=== PATIENT | female | born 1950 | race Two or more races ===

== ENCOUNTER 2016-03-17 11:03 | Outpatient (CLI) | payer MEDICARE | END 2016-03-17 11:04 | disposition home or self-care (01) | DX: Z12.31 Encounter for screening mammogram for malignant neoplasm of breast (principal); R92.2 Inconclusive mammogram ==

== ENCOUNTER 2016-04-12 12:30 | Outpatient (CLI) | payer MEDICARE | END 2016-04-12 12:31 | disposition home or self-care (01) | DX: N63 Unspecified lump in breast (principal) ==

== ENCOUNTER 2016-04-12 12:32 | Outpatient (CLI) | payer MEDICARE | END 2016-04-12 12:33 | disposition home or self-care (01) | DX: R00.2 Palpitations (principal); N63 Unspecified lump in breast | CPT/HCPCS: 93306; G0206 ==

== ENCOUNTER 2016-04-21 08:36 | Outpatient (CLI) | payer MEDICARE | END 2016-04-21 08:37 | disposition home or self-care (01) | DX: N63 Unspecified lump in breast (principal) ==

== ENCOUNTER 2016-05-23 07:13 | Day surgery (SDC) | payer MEDICARE ==
[2016-05-23] MEDS ORDERED: LACTATED RINGERS 1,000 ML IV ONE (07:36)
[2016-05-23] MEDS ORDERED: MIDAZOLAM 2 MG/2 ML VIAL IVP ONE (08:10)
[2016-05-23] MEDS ORDERED: fentaNYL 250 MCG/5 ML VIAL IVP ONE (08:10)
== END 2016-05-23 07:14 | disposition home or self-care (01) ==
PROC: 0DBK8ZX Excision of Ascending Colon, Via Natural or Artificial Opening Endoscopic, Diagnostic (ICD-10-PCS; principal; 2016-05-23 08:15)
DX: Z12.11 Encounter for screening for malignant neoplasm of colon (principal); D12.2 Benign neoplasm of ascending colon; K57.30 Diverticulosis of large intestine without perforation or abscess without bleeding; K64.8 Other hemorrhoids; Z79.82 Long term (current) use of aspirin; E78.00 Pure hypercholesterolemia, unspecified; F32.9 Major depressive disorder, single episode, unspecified; F41.0 Panic disorder [episodic paroxysmal anxiety]; Z87.891 Personal history of nicotine dependence; Z82.49 Family history of ischemic heart disease and other diseases of the circulatory system; Z80.1 Family history of malignant neoplasm of trachea, bronchus and lung; I49.9 Cardiac arrhythmia, unspecified
CPT/HCPCS: 45380; J3010; J7120

== ENCOUNTER 2017-06-16 16:58 | Outpatient (CLI) | payer MEDICARE | END 2017-06-16 16:59 | disposition critical access hospital (66) | LOC: EMS 16:58 | PROVIDERS: ATTEND Surgery | DX: M25.522 Pain in left elbow (principal); M25.562 Pain in left knee; V18.4XXA Pedal cycle driver injured in noncollision transport accident in traffic accident, initial encounter; Y93.55 Activity, bike riding; Y92.414 Local residential or business street as the place of occurrence of the external cause | CPT/HCPCS: A0425; A0429 ==

== ENCOUNTER 2017-06-16 17:16 | Emergency (ER) | payer MEDICARE ==
[2017-06-16 17:20] VITALS: BP 124/83
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
== END 2017-06-16 17:36 | disposition home or self-care (01) ==
LOC: EDUNIT# → ED 17:16 → SUPCPDRO 17:16 → ED 17:36
DX: S50.312A Abrasion of left elbow, initial encounter (principal); S80.212A Abrasion, left knee, initial encounter; V17.4XXA Pedal cycle driver injured in collision with fixed or stationary object in traffic accident, initial encounter; Y93.55 Activity, bike riding; Y92.410 Unspecified street and highway as the place of occurrence of the external cause; R03.0 Elevated blood-pressure reading, without diagnosis of hypertension
CPT/HCPCS: 99282; 99283

== ENCOUNTER 2018-03-29 10:11 | Outpatient (CLI) | payer MEDICARE ==
--- NOTE | 2018-03-29 11:38 | Mammography Report ---
Reason: SCREENING MAMMO Procedure Date: 03/29/2018 Accession Number: [id number] / [id number] Procedure: [facility]INFA - Screening Mammo w/Roney CPT Code: FULL RESULT: EXAM: Screening Mammo w/Roney DATE: 03/29/2018 10:36 AM CLINICAL HISTORY: Routine screening. Nulliparous patient. TECHNIQUE: Bilateral CC and MLO views were obtained. COMPARISON: 04/12/2016, 03/17/2016, 04/11/2014 and 01/18/2011 FINDINGS: The breast tissue is heterogeneously dense. No significant interval change. No suspicious masses, clustered microcalcifications, or regions of architectural distortion are identified. IMPRESSION: Benign findings RECOMMENDATION: Routine annual screening unless otherwise clinically indicated. BIRADS CATEGORY 2: Benign findings STANDARD QUALIFYING STATEMENTS: 1. This examination was not reviewed with the aid of Computer-Aided Detection (CAD). 2. A negative or benign imaging report should not preclude biopsy if clinically suspicious findings are present. 3. Dense breasts may obscure an underlying neoplasm. 4. This examination was reviewed with the aid of 3D breast imaging (tomosynthesis).
== END 2018-03-29 10:12 | disposition home or self-care (01) ==
LOC: DI 10:11
DX: Z12.31 Encounter for screening mammogram for malignant neoplasm of breast (principal)
CPT/HCPCS: 77063; 77067

== ENCOUNTER 2020-07-27 10:30 | Emergency (ER) | payer MEDICARE ==
[2020-07-27] MEDS ORDERED: SUMAtriptan 6 MG/0.5 ML VIAL SUBQ STA (10:54)
--- NOTE | 2020-07-27 10:57 | ED Physician Documentation ---
PD HPI FOCAL NEURO - Stated complaint Stated Complaint: LEFT LIMBS PX/EYE PX - Chief complaint Chief Complaint: Neuro - History obtained from History obtained from: Patient - Additional information Additional information: 69-year-old woman with chronic migraines, in fact she gets daily ophthalmic migraines where she gets typical central dot which then spreads out through both eyes with shapes and colors and then actually subsequently oblique goes blind for a few minutes. Followed by a very mild head pressure and fatigue. She got her usual migraine aura today with the same ophthalmic visual changes but then she had 2 ilak-mh-aonc and the second 1 moved to the right side of her vision. Subsequently developed numbness and tingling in the left arm and leg without weakness. She still has the numbness and tingling. She is not on any migraine medications. 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: Oophrectomy - Present Medications Home Medications: Ambulatory Orders Medication Instructions Recorded Confirmed Amitriptyline [Elavil] 25 mg PO HS #30 tablet 07/27/20 - Allergies Allergies/Adverse Reactions: Allergies Allergy/AdvReac Type Severity Reaction Status Date / Time No Known Drug Allergies Allergy Verified 07/27/20 10:35 - Social History Does the pt smoke?: No Smoking Status: Former smoker Does the pt drink ETOH?: Yes ETOH Use: Liquor Does the pt have substance abuse?: No - Immunizations Immunizations are current?: Yes - POLST Patient has POLST: No PD ED PE NORMAL - Vitals Vital signs reviewed: Yes - General General: Alert and oriented X 3, No acute distress - HEENT HEENT: PERRL, EOMI - Neck Neck: Supple, no meningeal sign, No bony TTP - Neuro Neuro: Alert and oriented X 3, 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, No motor deficit, No sensory deficit, Normal speech Eye Opening: Spontaneous Motor: Obeys Commands Verbal: Oriented GCS Score: 15 NIHSS - Time Time: 10:52 - Level of Consciousness Level of consciousness: (0) Alert, Keenly responsive LOC Questions: (0) Answers both Q's correct LOC Commands: (0) Performs both correctly - Gaze Best Gaze: (0) Normal - Visual Visual: (0) No loss - Facial Palsy Facial Palsy: (0) Normal, symmetrical movement - Motor Arms (both separate) Motor Arm (right): (0) No drift Motor Arm (left): (0) No drift - Motor Legs (both separate) Motor Leg (right): (0) No drift Motor Leg (left): (0) No drift - Limb Ataxia Limb Ataxia: (0) Absent - Sensory Sensory: (0) Normal - Best Language Best Language: (0) No aphasia - Dysarthria Dysarthria: (0) Normal - Extinction and Inattention (formally neg Extinction and inattention: (0) No abnormality - Total Score/Results Total Score/Result: 0 Results - Vitals Vitals: Vital Signs - 24 hr 07/27/20 07/27/20 07/27/20 10:35 11:03 11:38 Temperature 36.7 C 36.9 C Heart Rate 61 58 L 55 L Respiratory 16 16 16 Rate Blood Pressure 149/78 H 121/82 H 140/75 H O2 Saturation 99 98 96 Oxygen O2 Source Room air PD MEDICAL DECISION MAKING - ED course ED course: This 69-year-old woman had left-sided numbness and tingling following a migraine aura which was typical for her other than the fact that it moved to the right side of her vision which of course fits with migraine symptoms as opposed to stroke. Her NIH stroke scale is 0. We will trial some Imitrex and if curative discuss migraine prophylactic medications, if negative will continue with other work-up for potential stroke. After the administration of subcutaneous Imitrex she had complete relief of her tingling confirmed the diagnosis of migrainous etiology. Departure - Departure Disposition: 01 Home, Self Care Clinical Impression: Migraine Qualifiers: Migraine type: with aura Status migrainosus presence: with status migrainosus Intractability: not intractable Qualified Code(s): G43.101 - Migraine with aura, not intractable, with status migrainosus Condition: Good Record reviewed to determine appropriate education?: Yes Instructions: ED Headache Migraine Prescriptions: Amitriptyline [Elavil] 25 mg PO HS #30 tablet Comments: Start the amitriptyline at night. Report to your physician whether is working or not. Return for new or worsening symptoms.
--- OUTSIDE RECORDS SUMMARY | 2020-07-27 11:16 | EXTERNAL MEDICAL SUMMARY RPT | Continuity of Care Document ---
:1950 Demographics Phone Unavailable Preferred Language Unknown Marital Status Unknown Judaism Affiliation Unknown Race Unknown Ethnic Group Unknown Author Organization [facility] Address [address] [place] [address] Phone Allergies Encounters Medications Problems Results
[2020-07-27 12:29] VITALS: BP 132/74
== END 2020-07-27 12:29 | disposition home or self-care (01) ==
LOC: ED 10:30
DX: G43.101 Migraine with aura, not intractable, with status migrainosus (principal); R20.2 Paresthesia of skin; Z87.891 Personal history of nicotine dependence
CPT/HCPCS: 96372; 99283

== ENCOUNTER 2020-08-31 08:30 | Outpatient (CLI) | payer MEDICARE ==
[2020-08-31 08:54] LABS: CREATININE 0.6 mg/dL (0.4-1.0)
== END 2020-08-31 23:59 | disposition home or self-care (01) ==
LOC: LAB 08:30
PROVIDERS: ATTEND Family Medicine
DX: R47.01 Aphasia (principal)
CPT/HCPCS: 36415; 82565

== ENCOUNTER 2020-09-08 08:39 | Outpatient (CLI) | payer MEDICARE ==
[2020-08-31 08:54] LABS: CREATININE 0.6 mg/dL (0.4-1.0)
[~2020-09-08 08:39] MED LIST: GADOBUTROL 10 MMOL/10 ML VIAL ONE
[2020-09-08] MEDS ORDERED: GADOBUTROL 10 MMOL/10 ML VIAL ONE (09:31)
--- NOTE | 2020-09-08 13:57 | MRI Report ---
PROCEDURE: Brain W/WO INDICATIONS: APHASIA, MIGRAINE/MIXED HEADACHE CONTRAST: IV CONTRAST: Gadavist ml: 7.5 TECHNIQUE: Noncontrast axial T1 spin echo, axial T2 fast spin echo, sagittal and axial FLAIR, coronal T2 fast sp in echo, axial gradient echo, axial diffusion and ADC through the brain. After the administration of contrast, axial and coronal T1 spin echo with fat saturation through the brain. COMPARISON: None. FINDINGS: Image quality: Excellent. CSF spaces: Basal cisterns are patent. No extra-axial fluid collections. Ventricles are normal in size and shape. Brain: No midline shift. No intracranial bleeds or masses. No abnormal intracranial enhancement. There is mild cerebral volume loss for age. Mild chronic microvascular ischemic changes. The brainste m appears normal. Diffusion-weighted images demonstrate no acute ischemic insults. No chronic ische sunny insults. Normal intravascular flow voids are present. Skull and face: Calvarial marrow is normal in signal. Orbits appear normal. Sinuses: Sinuses and mastoids are predominantly clear. IMPRESSION: No acute intracranial finding, intracranial mass, or abnormal intracranial enhancement. Mild chronic microvascular ischemic changes and age-commensurate mild global volume loss. Reviewed by: Cedric Siu MD on 09/08/2020 1:56 PM PDT Approved by: Cedric Siu MD on 09/08/2020 1:56 PM PDT Station ID: [id number]
--- NOTE | 2020-09-08 14:11 | MRI Report ---
PROCEDURE: Angio Brain W/O (MRA) INDICATIONS: APHASIA, MIGRAINE/MIXED HEADACHE TECHNIQUE: Noncontrast axial 3-D [id number]-sk-[id number] MR angiogram, with 3-dimensional maximum intensity projection (M IP) reformats of the internal carotid arteries and posterior circulation then performed. COMPARISON: None. FINDINGS: Image quality: Excellent. Anterior circulation: Normal flow-related signal is seen in the internal carotid arteries, with some irregularity along the carotid siphon suggesting atherosclerotic changes. There is also flow-related signal demonstrated within the anterior cerebral arteries, middle cerebral arteries, and the visualiz ed proximal branches. No branch occlusion or hemodynamic significant stenosis. There is some minimal luminal irregularity of the signal in the M1 segment suggesting atherosclerotic disease. No anterior circulation aneurysm. Posterior circulation: Visualized portions of the vertebral arteries demonstrate normal caliber, and join to form a normal appearing basilar artery. The flow within the posterior cerebral arteries is normal and symmetric. No stenoses, occlusions, or aneurysms. IMPRESSION: Suspected mild intracranial atherosclerosis of the internal carotid arteries and proximal M1 segments . Otherwise normal MR angiogram with no evidence of branch occlusion, hemodynamically significant narro wing, or intracranial aneurysm. Reviewed by: Cedric Siu MD on 09/08/2020 2:09 PM PDT Approved by: Cedric Siu MD on 09/08/2020 2:09 PM PDT Station ID: [id number]
[2020-09-08] MEDS ORDERED: GADOBUTROL 10 MMOL/10 ML VIAL IVP ONE (16:00)
== END 2020-09-08 08:40 | disposition home or self-care (01) ==
LOC: DI 08:39
PROVIDERS: ATTEND Family Medicine
DX: R47.01 Aphasia (principal); G43.909 Migraine, unspecified, not intractable, without status migrainosus; G44.89 Other headache syndrome; Z85.820 Personal history of malignant melanoma of skin
CPT/HCPCS: 36415; 70544; 70553; 82565; A9585

== ENCOUNTER 2020-09-22 14:19 | Outpatient (CLI) | payer MEDICARE ==
[2020-09-22 18:15] LABS: HCT - HEMATOCRIT 44.2 % (37.0-47.0); HGB - HEMOGLOBIN 14.5 g/dL (12.0-16.0); MEAN CORPUSCULAR HEMOGLOBIN 30.1 pg (27.0-31.0); MEAN CORPUSCULAR HGB CONC 32.8 g/dL (32.0-36.0); MEAN CORPUSCULAR VOLUME 91.7 fL (81.0-99.0); MEAN PLATELET VOLUME 10.8 fL (7.9-10.8); RED BLOOD COUNT 4.82 10^6/uL (4.20-5.40); RED CELL DISTRIBUTION WIDTH 12.9 % (12.0-15.0); WHITE BLOOD COUNT 5.6 x10^3/uL (4.8-10.8)
[2020-09-22 18:35] LABS: ALBUMIN 4.4 g/dL (3.2-5.5); ALBUMIN/GLOBULIN RATIO 1.7 (1.0-2.2); ALKALINE PHOSPHATASE 63 IU/L (42-121); ALT ALANINE AMINOTRANSFERASE 22 IU/L (10-60); AST ASPARTATE AMINOTRANSFERASE 20 IU/L (10-42); BILIRUBIN,TOTAL 0.9 mg/dL (0.2-1.0); BUN - BLOOD UREA NITROGEN 14 mg/dL (6-20); CALCIUM 9.3 mg/dL (8.5-10.3); CARBON DIOXIDE - CO2 27 mmol/L (21-32); CHLORIDE 102 mmol/L (101-111); CREATININE 0.5 mg/dL (0.4-1.0); GFR - MDRD 122 (>89); GLUCOSE 92 mg/dL (70-100); POTASSIUM 3.8 mmol/L (3.5-5.0); SODIUM 139 mmol/L (135-145)
[2020-09-22 18:48] LABS: THYROID STIMULATING HORMONE 0.67 uIU/mL (0.34-5.60)
[2020-09-22 18:52] LABS: CRP - C-REACTIVE PROTEIN < 1.0 mg/dL (0-1.0)
[2020-09-22 20:15] LABS: RHEUMATOID FACTOR NEGATIVE (Negative)
[2020-09-24 21:21] LABS: CYCLIC CITRULL PEPTIDE CCP IGG <16 UNITS
== END 2020-09-22 23:59 | disposition home or self-care (01) ==
LOC: LAB.WCP 14:19
PROVIDERS: ATTEND Family Medicine
DX: R49.0 Dysphonia (principal); E04.2 Nontoxic multinodular goiter; M25.50 Pain in unspecified joint
CPT/HCPCS: 36415; 80053; 84432; 84443; 85027; 85651; 86140; 86200; 86430; 86800

== ENCOUNTER 2021-12-09 08:12 | Outpatient (CLI) | payer MEDICARE ==
--- NOTE | 2021-12-10 11:18 | Mammography Report ---
BILATERAL DIGITAL DIAGNOSTIC MAMMOGRAM 3D/2D: 12/09/2021 CLINICAL: Patient returns today to evaluate asymmetries in bilateral breasts. Comparison is made to exams dated: 11/26/2021 mammogram, 03/29/2018 mammogram, 04/12/2016 mammogram, a nd 03/17/2016 mammogram - [facility]. Both breasts are heterogeneously dense, which may obscure small masses (category c / 51-75% glandular tissue). There is an oval focal asymmetry with a circumscribed margin in the right breast at 7 o'clock posteri or depth. This is seen in additional views. The asymmetry in the left breast middle depth lateral region seen on the craniocaudal view only is no longer seen and is consistent with fibroglandular tissue. No other significant masses or calcifications are seen in either breast. IMPRESSION: INCOMPLETE: NEEDS ADDITIONAL IMAGING EVALUATION The oval focal asymmetry in the right breast at 7 o'clock posterior depth is indeterminate. An ultra sound is recommended. Based on the Tyrer Cuzick model (a risk assessment model) the patients lifetime risk is 7.5% and her 10 year risk is 5.6%. According to the ACR, ACS, and NCCN guidelines, an annual breast MRI exam tiara g with mammogram is recommended if the patients lifetime risk is 20% or greater. This exam was interpreted at Station ID: [id number]. NOTE: For mammograms, a report in lay terms will be sent to the patient. Approximately 15% of breast malignancies will not be visualized mammographically. In the management of a palpable breast mass, a negative mammogram must not discourage biopsy of a clinically suspicious lesion. Electronically Signed By: Mateusz chinchilla/manuel:12/09/2021 20:01:09 ACR BI-RADS Category 0: Incomplete 3340F PARENCHYMAL PATTERN: (D) - The breast(s) demonstrate(s) heterogeneously dense fibroglandular steffanie puri. BI-RADS CATEGORY: (0) - 0 Ultrasound [id number] Immediate follow-up LATERALITY: (R)
--- NOTE | 2021-12-10 11:18 | Ultrasound Report ---
LIMITED ULTRASOUND OF RIGHT BREAST: 12/09/2021 CLINICAL: Patient returns today to evaluate a focal asymmetry in the right breast. Comparison is made to exams dated: 12/09/2021 mammogram, 03/29/2018 mammogram, 11/26/2021 mammogram, 04/12/2016 mammogram, and 03/17/2016 mammogram - [facility]. Color flow ultrasound of the right breast 7 o'clock region was performed. Barahona scale images of the r eal-time examination were reviewed. There is a benign 0.7 cm x 0.5 cm x 0.2 cm oval lymph node with a circumscribed margin in the right b reast at 7 o'clock middle depth 5 cm from the nipple. This oval lymph node is hypoechoic with fatty hilum. This correlates with mammography findings. Color flow imaging demonstrates that there is vas cularity present. IMPRESSION: BENIGN There is no sonographic evidence of malignancy. The 0.7 cm x 0.5 cm x 0.2 cm oval lymph node in the right breast is benign. Return to annual mammogram screening schedule is recommended. This exam was interpreted at Station ID: [id number]. Electronically Signed By: Mateusz chinchilla/manuel:12/09/2021 20:03:13 Ultrasound BI-RADS: 2 Benign BI-RADS CATEGORY: (2) - 2 Mammogram [id number] return to screening LATERALITY: (B)
== END 2021-12-09 08:13 | disposition home or self-care (01) ==
LOC: DI 08:12
PROVIDERS: ATTEND Physician Assistant
DX: R92.8 Other abnormal and inconclusive findings on diagnostic imaging of breast (principal)

== ENCOUNTER 2021-12-30 16:03 | Outpatient (CLI) | payer MEDICARE ==
[2021-12-30] MEDS ORDERED: iohexoL-300 100 ML VIAL ONE (16:07)
[2021-12-30] MEDS ORDERED: iohexoL-300 100 ML VIAL IVP ONE (18:09)
--- NOTE | 2021-12-31 11:12 | CT Report ---
PROCEDURE: CT neck with contrast INDICATIONS: SUBMANDIBULAR LYMPHADENOPATHY CONTRAST: 100ml Omnipaque 300 TECHNIQUE: After the administration of intravenous contrast, 3.0 mm axial sections acquired from the sella to the aortic arch. Additional oblique axial 3.0 mm sections acquired through the pharynx. 3 mm thick coronal reformats were generated. For radiation dose reduction, the following was used: a utomated exposure control, adjustment of mA and/or kV according to patient size. COMPARISON: None. FINDINGS: Image quality: Excellent. Lymph nodes: Small nonenlarged right submandibular lymph node measures 7 x 5 mm. No evidence of adeno gladys throughout the exam. Vessels: Visualized vasculature appears patent. Neck spaces: The oropharynx, nasopharynx, and pharynx demonstrate no mucosal lesions. The vocal cor ds, false vocal cords, pyriform sinuses, epiglottis, vallecula, and tongue base all appear normal. E xtramucosal spaces appear unremarkable. Glands: The parotid and submandibular glands appear normal. Right-sided thyroid nodule measures 3.1 x 3.0 cm. Miscellaneous: Visualized brain and orbits appear normal. Lung apices appear clear. Superficial so ft tissues appear normal. Bones: No suspicious bony lesions. Visualized sinuses and mastoids appear unremarkable. Degenerati ve disc disease and arthropathy in the cervical spine results in straightening of the normal cervical lordosis. IMPRESSION: 1. Small nonenlarged right submandibular lymph node. No adenopathy. 2. Right thyroid nodule can be correlated with ultrasound Reviewed by: Domingo Paula MD on 12/31/2021 10:11 AM [facility] Approved by: Domingo Paula MD on 12/31/2021 10:11 AM [facility] Station ID: [id number]
== END 2021-12-30 16:04 | disposition home or self-care (01) ==
LOC: DI 16:03
PROVIDERS: ATTEND Physician Assistant
DX: E04.1 Nontoxic single thyroid nodule (principal)
CPT/HCPCS: 70491; Q9967

== ENCOUNTER 2022-01-04 12:53 | Outpatient (CLI) | payer MEDICARE ==
[2022-01-04 13:33] VITALS: BP 112/66
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
== END 2022-01-04 12:54 | disposition home or self-care (01) ==
LOC: SC 12:53
PROVIDERS: ATTEND Nurse Practitioner Family
DX: G47.10 Hypersomnia, unspecified (principal); R53.83 Other fatigue; G47.8 Other sleep disorders; G47.00 Insomnia, unspecified; R06.83 Snoring; E66.3 Overweight; Z68.26 Body mass index [BMI] 26.0-26.9, adult; Z87.891 Personal history of nicotine dependence
CPT/HCPCS: 99203; G0463; 99212

== ENCOUNTER 2022-01-14 12:32 | Outpatient (CLI) | payer MEDICARE ==
--- NOTE | 2022-01-14 21:04 | Ultrasound Report ---
PROCEDURE: Head or Neck Soft Tissue INDICATIONS: THYROID NODULE TECHNIQUE: Real-time scanning was performed of the thyroid gland, with image documentation. COMPARISON: CT neck with, 12/30/2021. Ultrasound thyroid, 01/22/2015. FINDINGS: Right: Thyroid lobe measures 6.3 x 2.8 x 2.3 cm, and is homogeneous in echotexture. Left: Thyroid lobe measures 5.8 x 2.2 x 2.3 cm, and is homogenous in echotexture. Isthmus: 0.3 mm thick. Nodule number: 1 Location: Right superior Size: 3.2 x 3.0 x 2.6 cm; previously 2.4 x 2.2 x 1.8 cm. Composition: Solid Echogenicity: Hypoechoic Shape: wider than tall. Margins: Smooth Echogenic foci: None Total points: 4 ACR TI-RADS category: TI-RADS 4 Nodule number: 2 Location: Right mid Size: 1.3 x 1.1 x 1.3 cm; previously 2.0 x 2.0 x 1.8 cm. Composition: Solid Echogenicity: Hypoechoic Shape: wider than tall. Margins: Ill-defined Echogenic foci: Peripheral Total points: 6 ACR TI-RADS category: TI-RADS 4 Nodule number: 3 Location: Right inferior Size: 1.6 x 1.5 x 1.2 cm. Composition: Solid Echogenicity: Hypoechoic Shape: wider than tall. Margins: Smooth Echogenic foci: None Total points: 4 ACR TI-RADS category: TI-RADS 4 Nodule number: 4 Location: Left superior Size: 2.0 x 1.5 cm x 1.4 cm; previously 2.0 x 1.5 x 1.2 cm Composition: Spongiform Echogenicity: Hypoechoic Shape: wider than tall. Margins: Ill-defined Echogenic foci: None Total points: 2 ACR TI-RADS category: TI-RADS 2 Nodule number: 5 Location: Left superior Size: 1.1 x 1.1 x 0.8 cm; previously 0.8 x 0.7 x 0.5 cm Composition: Solid Echogenicity: Hypoechoic Shape: wider than tall. Margins: Smooth Echogenic foci: None Total points: 4 ACR TI-RADS category: TI-RADS 4 Nodule number: 6 Location: Left superior Size: 0.8 x 0.8 x 0.6 cm; previously 0.8 cm Composition: Solid Echogenicity: Hypoechoic Shape: wider than tall. Margins: Smooth Echogenic foci: Peripheral calcification Total points: 6 ACR TI-RADS category: TI-RADS 4 A hypoechoic nodule is seen posterior to the right thyroid gland, likely the parathyroid. There are n ormal sized subcentimeter lymph nodes in the neck. IMPRESSION: 1. Multiple thyroid nodules bilaterally. 2. Nodule 1 is moderately suspicious. Recommend ultrasound-guided fine-needle aspiration biopsy. 3. Nodular 2 is also moderate suspicious but has decreased in size since the last exam, suggesting a benign nodule. This nodule and other nodules can be followed by ultrasound (please see enclosed follo w-up guidelines). 4. Prominent parathyroid gland is seen posterior to the right thyroid lobe. This could represent a pa rathyroid adenoma. Please correlate with serum calcium and parathyroid hormone levels. ACR TI-RADS definitions and recommendations: TI-RADS 1 (benign): 0 points. FNA not needed. TI-RADS 2 (not suspicious): 2 points. FNA not needed. TI-RADS 3 (mildly suspicious): 3 points. "FNA if 2.5 cm or larger, follow up if 1.5 cm or larger (at 1, 3, and 5 years). TI-RADS 4 (moderately suspicious): 4-6 points. "FNA if 1.5 cm or larger, follow up if 1 cm or larger (at 1, 2, 3, and 5 years). TI-RADS 5 (highly suspicious): 7 points or more. "FNA if 1 cm or larger, follow up if 0.5 cm or larger (every year for 5 years). Reviewed by: Dalila Bates MD on 01/14/2022 9:03 PM PST Approved by: Dalila Bates MD on 01/14/2022 9:03 PM PST Station ID: [id number]
== END 2022-01-14 12:33 | disposition home or self-care (01) ==
LOC: DI 12:32
PROVIDERS: ATTEND Physician Assistant
DX: E04.2 Nontoxic multinodular goiter (principal)

== ENCOUNTER 2022-01-20 10:03 | Outpatient (CLI) | payer MEDICARE ==
[2022-01-20 12:28] LABS: ALBUMIN 4.2 g/dL (3.2-5.5); ALBUMIN/GLOBULIN RATIO 1.5 (1.0-2.2); BILIRUBIN,TOTAL 0.8 mg/dL (0.2-1.0); CALCIUM 9.3 mg/dL (8.5-10.3); CREATININE 0.6 mg/dL (0.4-1.0); POTASSIUM 3.8 mmol/L (3.5-5.0)
== END 2022-01-20 10:04 | disposition home or self-care (01) ==
LOC: LAB.N 10:03
PROVIDERS: ATTEND Physician Assistant
DX: E21.5 Disorder of parathyroid gland, unspecified (principal); R59.0 Localized enlarged lymph nodes
CPT/HCPCS: 36415; 80053; 83970

== ENCOUNTER 2022-02-09 09:44 | Outpatient (CLI) | payer MEDICARE ==
[~2022-02-09 09:44] MED LIST changes: -GADOBUTROL 10 MMOL/10 ML VIAL ONE; +LIDOCAINE-MPF 1% 5 ML VIAL ONE
--- NOTE | 2022-02-09 11:10 | Ultrasound Report ---
PROCEDURE: FNA Bx w/US Gdn 1st Les INDICATIONS: THYROID NODULE TECHNIQUE: The indications, alternatives, benefits, risks, and complications of the procedure were explained to the patient. Written informed consent was obtained and placed in the chart. The area of interest wa s examined sonographically and a site was chosen for ultrasound guided percutaneous sampling. The sk in was prepared and draped in the usual fashion, and anesthetized with 1% lidocaine infiltrated from the skin down to the lesion. Multiple passes were then performed, with contents emptied into an appr [facility] pathology specimen container. A bandage was applied to the area of access at completion of t he study. COMPARISON: January 14, 2022 FINDINGS: Location(s) of lesion(s) sampled: Right dominant superior to mid nodule [place]: 25 gauge hypodermic needles. Number of passes: 4 Medications: 1% lidocaine for local anaesthesia. Complications: None. IMPRESSION: Successful ultrasound-guided right thyroid fine needle aspiration, with cytology results pending. Reviewed by: Cnonor Arvizu MD on 02/09/2022 11:08 AM PST Approved by: Connor Arvizu MD on 02/09/2022 11:08 AM PST Station ID: [id number]
[2022-02-09] MEDS ORDERED: LIDOCAINE-MPF 1% 5 ML VIAL TD ONE (11:22)
== END 2022-02-09 09:45 | disposition home or self-care (01) ==
LOC: DI 09:44
PROVIDERS: ATTEND Physician Assistant
DX: E04.1 Nontoxic single thyroid nodule (principal)
CPT/HCPCS: 10005

== ENCOUNTER 2022-02-18 14:26 | Outpatient (CLI) | payer MEDICARE | END 2022-02-18 14:27 | disposition home or self-care (01) | LOC: SC 14:26 | PROVIDERS: ATTEND Nurse Practitioner Family | DX: G47.10 Hypersomnia, unspecified (principal); G47.8 Other sleep disorders; R53.83 Other fatigue | CPT/HCPCS: G0399 ×2; 95806 ==

== ENCOUNTER 2022-03-23 09:39 | Outpatient (CLI) | payer MEDICARE ==
[2022-03-23 10:07] VITALS: BP 122/74
--- NOTE | 2022-03-23 10:07 | SLEEP CARE CONSULTATION ---
Information from patient questionnaire entered by Dayan Luz. I have reviewed and concur with the information entered by Dayan Luz. This document represents the service I personally performed and the decisions made by , Cecilia De La Vega ARNP. History of Present Illness Service Date and Time: 03/23/2022 0939 Initial [place] Sleepiness Scale score: 16 (01/03/2022) Current [place] Sleepiness Scale score: 4 (03/23/22) Additional HPI information: MOHSEN MORALES returns for follow up and results of the recently performed home sleep study. The patient was informed of the following findings: No significant sleep disordered breathing with an average AHI of 3.6 and du oxygen saturation of 88%. I explained the pathophysiology behind obstructive sleep apnea. Patient does not have sleep apnea and was advised how weight gain could increase the risk of developing sleep apnea in the future. I strongly encouraged the patient to lose weight. Patient has light snoring. Snoring can be reduced by weight loss. Weight loss is best achieved with diet consult. Patient instructed to contact PCP for referral. Snoring can also be treated with an oral appliance from a dentist. Advised to check insurance coverage. In addition, an ENT evaluation can be do to see if other treatment is indicated. Patient counseled not drink alcohol less than 4 hours before bedtime as it can increase snoring and apnea. Patient was cautioned about risks of drowsy driving until sleepiness symptoms resolve. Patient denies drowsy driving. Sleep Study - Results Type of Sleep Study: Home sleep study (COMPLETED 02/18/22) Prior sleep studies: No Polysomnography/Home Sleep Study results: Physician Impression: The quality of the study is good. The length of the study is adequate (> 240 minutes). Please also see the tabulated and graphic data. 1. No significant sleep disordered breathing, with an AHI of 3.6/hr and du SaO2 of 88%. During the study, the patient had 13 apneas (13 obstructive, 0 central, 0 mixed) and 9 hypopneas. The longest episode lasted 74.0 seconds. The few respiratory events occurred independently of sleep stage and body position (supine AHI was 4.0 and non- supine, 3.15). 2. Hypoxemia (ICD-10 R09.02), minimal, with the lowest oxygen saturation of 88 % and 0.2 minutes with SaO2 under 90%. Baseline oxygen saturation was normal (Average oxygen saturation was 93%). Allergies and Home Medications Drug allergies reviewed: Yes (NKDA) Home medication list reviewed: Yes (new statin, not started yet) Review of Systems Review of systems same as previous: Yes (no changes) Physical Exam Vital signs obtained and entered by: DAYAN Trejo MA Blood Pressure: 122/74 (LEFT ARM) Cuff size: regular Heart Rate: 69 O2 Saturation: 96 Height: 5 ft 4 in Weight: 160 lb Body Mass Index: 27.4 BMI Classification: Overweight Impression and Plan 1. Snoring, very light, but no significant sleep disordered breathing. Patient advised that often weight loss will reduce snoring as well as apnea risk. An oral appliance can also be used for snoring. This would require a dental consu ltation. Patient cautioned not to use other online appliances as can cause bite issues. A list of accredited dentists in [facility] and one local dentist who makes oral appliances is available in the office. Patient is advised to check if insurance will cover. An ENT consult can also be helpful to determine if any other treatment is an option. * Attempt to lose weight * Avoid alcohol consumption near bedtime * The patient is cautioned about driving when experiencing sleepiness. * Return as needed for follow up. Counseling Topics: Weight loss health impact Visit Type: In Office Time Spent with Patient (minutes): 13 Provider Statement: I spent 100% of the Face to Face Visit with the patient with greater than 50% spent counseling the patient and coordination of care.
== END 2022-03-23 09:40 | disposition home or self-care (01) ==
LOC: SC 09:39
PROVIDERS: ATTEND Nurse Practitioner Family
DX: R06.83 Snoring (principal)
CPT/HCPCS: 99212; G0463